=== PATIENT | female | born 1930 | race Caucasian/White ===

== ENCOUNTER 2018-06-24 11:11 | Inpatient (IN) | payer MEDICARE, OTHER, MEDICAID ==
[2018-06-24] MEDS: ACETAMINOPHEN 650 MG SUPP PR (12:00)
[2018-06-24 12:16] LABS: ADD MAN DIFF? NO
[2018-06-24 12:19] LABS: WHITE BLOOD COUNT 14.3 10^3/ul (4.8-10.8)
[2018-06-24 12:19] LABS: ABNORMAL IP MESSAGE 1; BASOPHILS % 0.3 % (0.0-2.0); EOSINOPHILS % 0.1 % (0.0-7.0); HEMATOCRIT 34.1 % (37.0-47.0); HEMOGLOBIN 10.1 g/dl (12.0-16.0); LYMPHOCYTES # 0.6 10^3/ul (0.8-2.9); LYMPHOCYTES % 4.1 % (15.0-51.0); MEAN CORPUSCULAR HEMOGLOBIN 29.9 pg (29.0-33.0); MEAN CORPUSCULAR HGB CONC 29.6 g/dl (32.0-37.0); MEAN CORPUSCULAR VOLUME 100.9 fl (82.0-101.0); MEAN PLATELET VOLUME 8.9 fl (7.4-10.4); MONOCYTE # 0.2 10^3/ul (0.3-0.9); MONOCYTES % 1.7 % (0.0-11.0); NEUTROPHIL # 13.4 10^3/ul (1.6-7.5); PLATELET COUNT 349 10^3/UL (140-415); RED BLOOD COUNT 3.38 10^6/ul (4.20-5.40); RED CELL DISTRIBUTION WIDTH 14.4 % (11.5-14.5)
[2018-06-24] MEDS: CEFEPIME 2GM/50 ML (PMX) 50 ML IVPB (12:22)
[2018-06-24 12:29] LABS: NEUTROPHILS % 93.4 % (39.0-77.0); POSITIVE DIFF @See below
[2018-06-24 12:43] LABS: INR 1.04; PROTIME 13.7 Sec (11.9-14.9); PT RATIO 1.1
[2018-06-24 12:44] LABS: PARTIAL THROMBOPLASTIN TIME 26.3 Sec (23.0-35.0)
[2018-06-24] MEDS: VANCOMYCIN 1 GM (PMX) 250 ML IVPB (12:55)
[2018-06-24 12:59] LABS: ALANINE AMINOTRANSFERASE 25 IU/L (13-69); ALBUMIN 3.1 g/dl (3.3-4.9); ALBUMIN/GLOBULIN RATIO 1.03; ALKALINE PHOSPHATASE 75 IU/L (42-121); ASPARTATE AMINO TRANSFERASE 19 IU/L (15-46); BILIRUBIN,INDIRECT 0.1 mg/dl (0-1.1); BILIRUBIN,TOTAL 0.1 mg/dl (0.2-1.3); BLOOD UREA NITROGEN 43 mg/dl (7-20); CALCIUM 9.7 mg/dl (8.4-10.2); CHLORIDE 103 mmol/L (97-110); CREATININE 0.52 mg/dl (0.44-1.00); GLUCOSE 273 mg/dl (70-220); POTASSIUM 4.1 mmol/L (3.5-5.1); SODIUM 146 mmol/L (135-144); TOTAL PROTEIN 6.1 g/dl (6.1-8.1)
[2018-06-24 13:04] LABS: ANION GAP 5 (5-13)
[2018-06-24 13:08] LABS: CARBON DIOXIDE 38 mmol/L (21-31)
[2018-06-24 13:09] LABS: TROPONIN-I 0.022 ng/ml (0.000-0.120)
[2018-06-24] MEDS ORDERED: ACETAMINOPHEN 325 MG TAB PO (14:00)
[2018-06-24] MEDS ORDERED: ONDANSETRON 4 MG INJ IV (14:00)
[2018-06-24] MEDS ORDERED: MECLIZINE 25 MG TAB PO (14:00)
[2018-06-24] MEDS ORDERED: MAGNESIUM HYDROXIDE 30ML CUP PO (14:00)
[2018-06-24 14:24] LABS: ANISOCYTOSIS 1+ (0-0); BAND NEUTROPHILS #M 8.8 10^3/ul (0.0-0.6); BAND NEUTROPHILS % (M) 62 % (0-4); LYMPHOCYTES #M 0.4 10^3/ul (0.8-2.9); LYMPHOCYTES % (M) 3 % (15-51); METAMYELOCYTES #M 0.2 10^3/ul (0.0-0.0); METAMYELOCYTES %M 2 % (0-0); MONOCYTE #M 0.1 10^3/ul (0.3-0.9); MONOCYTES % (M) 1 % (0-11); PLATELET ESTIMATE NORMAL; SEG NEUT #M 5.8 10^3/ul (1.6-7.5); SEGMENTED NEUTROPHILS (M) % 32 % (39-77); SMUDGE%M 8 % (0-0)
[2018-06-24] MEDS ORDERED: morphine 2 MG INJ IV (14:28)
[2018-06-24] MEDS: SOD CHLORIDE 0.9% 1,000 ML IV (14:30)
[2018-06-24] MEDS ORDERED: NACL 0.9% 3 ML SYG IV (14:30)
[2018-06-24 14:40] LABS: HEMOGLOBIN A1C 7.7 % (0-5.9)
[2018-06-24] MEDS: IOHEXOL 300MG/ML 150 ML BTL (14:40)
[2018-06-24] MEDS: IODIXANOL LOCM 100 ML BTL (14:50)
[2018-06-24] MEDS: SOD CHLORIDE 0.9% 100 ML (14:50)
[2018-06-24] MEDS: SODIUM CHLORIDE 0.9% 1L BAG IV* (15:00)
[2018-06-24] MEDS ORDERED: GLUCAGON 1 MG INJ IM (16:30)
[2018-06-24] MEDS ORDERED: GLUCOSE GEL 15 GRAM TUBE PO ×2 (16:30)
[2018-06-24] MEDS ORDERED: GLUCOSE GEL 15 GRAM TUBE BUCCAL (16:30)
[2018-06-24] MEDS ORDERED: DEXTROSE 50% 50 ML SYRINGE IV ×2 (16:30)
[2018-06-24] MEDS: DILTIAZEM 25 MG INJ IV (16:39)
[2018-06-24] MEDS: ACETAMINOPHEN 325 MG TAB PO (17:38)
[2018-06-24] MEDS: INSULIN ASPART [NOVOLOG] 3 ML PEN SC ×2 (18:00→22:07)
[2018-06-24] MEDS: AMIODARONE 150MG/D5W BOLUS 100 ML IV (18:05)
[2018-06-24] MEDS: AMIODARONE 900 MG in DEXTROSE 5% 482 ML IV (18:27)
[2018-06-24] MEDS: DIGOXIN 500 MCG INJ IV (18:56)
[2018-06-24] MEDS: LEVALBUTEROL (NEB) 0.63 MG/3 ML AMP HHN (20:58)
[2018-06-24] MEDS ORDERED: DILTIAZEM (CD) 120 MG CAP PO (21:00)
[2018-06-24] MEDS: CEFEPIME 1GM/50 ML (PMX) 50 ML IVPB (21:25)
[2018-06-24] MEDS: traMADol 50 MG TAB PO (21:30)
[2018-06-24] MEDS: METHYLPREDNISOLONE 40 MG INJ IV (21:30)
[2018-06-24] MEDS: QUETIAPINE 25 MG TAB PO (21:34)
[2018-06-24] MEDS: INSULIN ASP PROT/ASPART (70/30) PEN SC (22:07)
[2018-06-24] MEDS: SOD CHLORIDE 0.45% 1,000 ML IV (22:30)
[2018-06-24] MEDS: ALBUTEROL/IPRATROPIUM (NEB) 3 ML AMP NEB (23:18)
[2018-06-25] MEDS: DILTIAZEM 60 MG TAB GTB
[2018-06-25] MEDS: LORAZEPAM 4 MG/ML VIAL IV (00:23)
[2018-06-25] MEDS ORDERED: INSULIN ASPART [NOVOLOG] 3 ML PEN SC (01:00)
[2018-06-25] MEDS: INSULIN ASPART [NOVOLOG] 3 ML PEN SC ×6 (01:30→20:40)
[2018-06-25] MEDS ORDERED: ACCU-CHEK XX (02:00)
[2018-06-25] MEDS: LEVALBUTEROL (NEB) 0.63 MG/3 ML AMP HHN ×4 (02:00→19:53)
[2018-06-25] MEDS: ACETYLCYSTEINE 20% 4 ML VIAL NEB ×4 (02:00→19:49)
[2018-06-25] MEDS ORDERED: LEVOTHYROXINE 125 MCG TAB (05:18)
[2018-06-25] MEDS: LEVOTHYROXINE 100 MCG VIAL IV (06:00)
[2018-06-25] MEDS ORDERED: PANTOPRAZOLE (EC) 40 MG TAB PO (06:00)
[2018-06-25] MEDS ORDERED: LANSOPRAZOLE 30 MG CAP PO (06:00)
[2018-06-25] MEDS: PANTOPRAZOLE 40 MG INJ IV (06:28)
[2018-06-25] MEDS ORDERED: LEVOTHYROXINE 125 MCG TAB PO (07:00)
[2018-06-25] MEDS: DILTIAZEM-D5W 125MG/125ML DRIP 125 ML IV (07:10)
[2018-06-25] MEDS: MULTIVITAMINS 30 ML CUP PO (07:47)
[2018-06-25] MEDS: ASPIRIN 325 MG TAB PO (07:47)
[2018-06-25] MEDS: SERTRALINE 50 MG TAB PO (07:48)
[2018-06-25] MEDS: CHOLECALCIFEROL 1,000 UNIT TAB PO (07:48)
[2018-06-25] MEDS: INSULIN ASP PROT/ASPART (70/30) PEN SC ×2 (08:16→21:00)
[2018-06-25] MEDS: METHYLPREDNISOLONE 40 MG INJ IV (08:20)
[2018-06-25] MEDS: ENOXAPARIN 30 MG/0.3 ML SYG SC (08:21)
[2018-06-25] MEDS ORDERED: ASPIRIN (EC) 325 MG TAB PO (09:00)
[2018-06-25] MEDS ORDERED: MULTIVITAMINS THERAPEUTIC TAB PO (09:00)
[2018-06-25] MEDS ORDERED: ACETAMINOPHEN 650 MG SUPP PR (11:30)
[2018-06-25] MEDS: DEXTROSE 5%-0.45% NACL 1,000 ML IV (11:51)
[2018-06-25] MEDS: ACETAMINOPHEN 1000MG/100ML IV 100 ML IVPB ×4 (12:31→23:44)
[2018-06-25 14:52] LABS: ADD MAN DIFF? NO
[2018-06-25 14:56] LABS: WHITE BLOOD COUNT 13.8 10^3/ul (4.8-10.8)
[2018-06-25 14:56] LABS: BASOPHILS % 0.1 % (0.0-2.0); HEMATOCRIT 30.9 % (37.0-47.0); HEMOGLOBIN 9.2 g/dl (12.0-16.0); LYMPHOCYTES # 0.7 10^3/ul (0.8-2.9); LYMPHOCYTES % 4.9 % (15.0-51.0); MEAN CORPUSCULAR HEMOGLOBIN 30.2 pg (29.0-33.0); MEAN CORPUSCULAR HGB CONC 29.8 g/dl (32.0-37.0); MEAN CORPUSCULAR VOLUME 101.3 fl (82.0-101.0); MEAN PLATELET VOLUME 9.4 fl (7.4-10.4); MONOCYTE # 0.2 10^3/ul (0.3-0.9); MONOCYTES % 1.1 % (0.0-11.0); NEUTROPHIL # 12.9 10^3/ul (1.6-7.5); PLATELET COUNT 336 10^3/UL (140-415); RED BLOOD COUNT 3.05 10^6/ul (4.20-5.40); RED CELL DISTRIBUTION WIDTH 14.6 % (11.5-14.5)
[2018-06-25 15:01] LABS: NEUTROPHILS % 93.4 % (39.0-77.0); POSITIVE DIFF @See below
[2018-06-25 15:16] LABS: ALANINE AMINOTRANSFERASE 22 IU/L (13-69); ALBUMIN 2.7 g/dl (3.3-4.9); ALBUMIN/GLOBULIN RATIO 0.84; ALKALINE PHOSPHATASE 64 IU/L (42-121); ANION GAP 3 (5-13); ASPARTATE AMINO TRANSFERASE 17 IU/L (15-46); BILIRUBIN,INDIRECT 0.2 mg/dl (0-1.1); BILIRUBIN,TOTAL 0.2 mg/dl (0.2-1.3); BLOOD UREA NITROGEN 40 mg/dl (7-20); CALCIUM 9.1 mg/dl (8.4-10.2); CARBON DIOXIDE 40 mmol/L (21-31); CHLORIDE 102 mmol/L (97-110); CREATININE 0.54 mg/dl (0.44-1.00); GLUCOSE 177 mg/dl (70-220); MAGNESIUM 1.5 mg/dl (1.7-2.5); POTASSIUM 3.7 mmol/L (3.5-5.1); SODIUM 145 mmol/L (135-144); TOTAL PROTEIN 5.9 g/dl (6.1-8.1)
[2018-06-25 15:47] LABS: THYROID STIMULATING HORMONE 0.892 MIU/L (0.465-4.680)
[2018-06-25] MEDS: LORAZEPAM 2 MG INJ IV (17:56)
[2018-06-25] MEDS: CEFEPIME 1GM/50 ML (PMX) 50 ML IVPB (20:16)
[2018-06-25] MEDS: MAGNESIUM SULFATE 2 GM/50 ML 50 ML IVPB (20:16)
[2018-06-25] MEDS: AMIODARONE 900 MG in DEXTROSE 5% 482 ML IV (21:55)
[2018-06-25] MEDS: HALOPERIDOL 5 MG INJ IM (22:14)
[2018-06-26] MEDS ORDERED: LORAZEPAM 2 MG INJ (01:38)
[2018-06-26] MEDS: LORAZEPAM 2 MG INJ IV ×3 (01:42→23:04)
[2018-06-26] MEDS: LEVALBUTEROL (NEB) 0.63 MG/3 ML AMP HHN ×3 (01:48→13:06)
[2018-06-26] MEDS: ACETYLCYSTEINE 20% 4 ML VIAL NEB ×4 (01:49→19:30)
[2018-06-26] MEDS: INSULIN ASPART [NOVOLOG] 3 ML PEN SC ×5 (02:10→16:50)
[2018-06-26] MEDS: LEVOTHYROXINE 100 MCG VIAL IV (05:59)
[2018-06-26] MEDS: PANTOPRAZOLE 40 MG INJ IV (05:59)
[2018-06-26] MEDS: ACETAMINOPHEN 1000MG/100ML IV 100 ML IVPB ×2 (06:01→16:42)
[2018-06-26] MEDS: SERTRALINE 50 MG TAB PO (09:00)
[2018-06-26] MEDS: CHOLECALCIFEROL 1,000 UNIT TAB PO (09:00)
[2018-06-26] MEDS: MULTIVITAMINS 30 ML CUP PO (09:00)
[2018-06-26] MEDS: ASPIRIN 325 MG TAB PO (09:00)
[2018-06-26] MEDS: METHYLPREDNISOLONE 40 MG INJ IV (09:59)
[2018-06-26] MEDS: DEXTROSE 5%-0.45% NACL 1,000 ML IV (09:59)
[2018-06-26] MEDS: ENOXAPARIN 30 MG/0.3 ML SYG SC (10:17)
[2018-06-26] MEDS: BALSAM PERU/CASTOR OIL 60 GM TUBE TOP ×2 (10:26→22:27)
[2018-06-26] MEDS: INSULIN ASP PROT/ASPART (70/30) PEN SC (10:29)
[2018-06-26] MEDS: FUROSEMIDE 40 MG INJ IV (10:36)
[2018-06-26] MEDS: ALBUTEROL/IPRATROPIUM (NEB) 3 ML AMP NEB ×3 (11:00→19:30)
[2018-06-26] MEDS ORDERED: LORAZEPAM 2 MG INJ IV (11:30)
[2018-06-26] MEDS: HALOPERIDOL 5 MG INJ IM ×4 (12:32→21:00)
[2018-06-26] MEDS: ARTIFICIAL TEARS 15 ML OPH BOTH EYES ×3 (12:32→22:21)
[2018-06-26] MEDS: QUETIAPINE 25 MG TAB PO (21:00)
[2018-06-26] MEDS: CEFEPIME 1GM/50 ML (PMX) 50 ML IVPB (22:23)
[2018-06-26] MEDS: KETOROLAC 15 MG INJ IV (22:26)
[2018-06-27] MEDS: INSULIN ASPART [NOVOLOG] 3 ML PEN SC ×7 (00:08→21:00)
[2018-06-27] MEDS: HALOPERIDOL 5 MG INJ IM ×6 (00:09→21:00)
[2018-06-27] MEDS: ALBUTEROL/IPRATROPIUM (NEB) 3 ML AMP NEB ×4 (01:36→19:39)
[2018-06-27] MEDS: ACETYLCYSTEINE 20% 4 ML VIAL NEB ×4 (01:37→19:39)
[2018-06-27] MEDS: DEXTROSE 5%-0.45% NACL 1,000 ML IV (03:23)
[2018-06-27] MEDS: ALBUTEROL 0.083% (NEB) 2.5 MG/3 ML AMP HHN ×3 (04:05→23:39)
[2018-06-27] MEDS: PANTOPRAZOLE 40 MG INJ IV (05:52)
[2018-06-27] MEDS: LEVOTHYROXINE 100 MCG VIAL IV (05:52)
[2018-06-27] MEDS: KETOROLAC 15 MG INJ IV ×2 (05:52→23:44)
[2018-06-27] MEDS: AMIODARONE 900 MG in DEXTROSE 5% 482 ML IV (06:16)
[2018-06-27] MEDS: LORAZEPAM 2 MG INJ IV ×3 (07:56→23:00)
[2018-06-27] MEDS: METHYLPREDNISOLONE 40 MG INJ IV (08:54)
[2018-06-27] MEDS: ARTIFICIAL TEARS 15 ML OPH BOTH EYES ×4 (08:54→21:47)
[2018-06-27] MEDS: ASPIRIN 325 MG TAB PO (08:55)
[2018-06-27] MEDS: CHOLECALCIFEROL 1,000 UNIT TAB PO (08:55)
[2018-06-27] MEDS: SERTRALINE 50 MG TAB PO (08:55)
[2018-06-27] MEDS: MULTIVITAMINS 30 ML CUP PO (08:55)
[2018-06-27] MEDS: BALSAM PERU/CASTOR OIL 60 GM TUBE TOP ×2 (09:00→21:50)
[2018-06-27] MEDS: INSULIN ASP PROT/ASPART (70/30) PEN SC (09:11)
[2018-06-27] MEDS: ENOXAPARIN 30 MG/0.3 ML SYG SC (09:11)
[2018-06-27] MEDS: SOD CHLORIDE 0.45% 1,000 ML IV (10:48)
[2018-06-27] MEDS: ACETAMINOPHEN 650MG/20.3ML CUP PO (11:09)
[2018-06-27] MEDS: CEFEPIME 1GM/50 ML (PMX) 50 ML IVPB (21:00)
[2018-06-28] MEDS: HALOPERIDOL 5 MG INJ IM ×5 (01:00→17:00)
[2018-06-28] MEDS: ACETYLCYSTEINE 20% 4 ML VIAL NEB ×4 (02:00→20:34)
[2018-06-28] MEDS: ALBUTEROL/IPRATROPIUM (NEB) 3 ML AMP NEB ×4 (02:06→20:34)
[2018-06-28] MEDS: LORAZEPAM 2 MG INJ IV ×2 (02:26→10:13)
[2018-06-28] MEDS: ALBUTEROL 0.083% (NEB) 2.5 MG/3 ML AMP HHN (04:50)
[2018-06-28 05:29] LABS: ADD MAN DIFF? NO
[2018-06-28 05:34] LABS: BASOPHILS % 0.1 % (0.0-2.0); EOSINOPHILS # 0.4 10^3/ul (0.0-0.5); EOSINOPHILS % 3.5 % (0.0-7.0); HEMATOCRIT 29.8 % (37.0-47.0); HEMOGLOBIN 9.2 g/dl (12.0-16.0); LYMPHOCYTES # 1.1 10^3/ul (0.8-2.9); LYMPHOCYTES % 9.7 % (15.0-51.0); MEAN CORPUSCULAR HEMOGLOBIN 29.5 pg (29.0-33.0); MEAN CORPUSCULAR HGB CONC 30.9 g/dl (32.0-37.0); MEAN CORPUSCULAR VOLUME 95.5 fl (82.0-101.0); MEAN PLATELET VOLUME 9.4 fl (7.4-10.4); MONOCYTE # 0.5 10^3/ul (0.3-0.9); MONOCYTES % 4.6 % (0.0-11.0); NEUTROPHIL # 9.2 10^3/ul (1.6-7.5); NEUTROPHILS % 81.2 % (39.0-77.0); PLATELET COUNT 324 10^3/UL (140-415); RED BLOOD COUNT 3.12 10^6/ul (4.20-5.40); RED CELL DISTRIBUTION WIDTH 14.6 % (11.5-14.5)
[2018-06-28 05:34] LABS: WHITE BLOOD COUNT 11.3 10^3/ul (4.8-10.8)
[2018-06-28] MEDS: ONDANSETRON 4 MG INJ IV (05:38)
[2018-06-28] MEDS: PANTOPRAZOLE 40 MG INJ IV (05:39)
[2018-06-28] MEDS: KETOROLAC 15 MG INJ IV ×2 (05:39→23:50)
[2018-06-28] MEDS: LEVOTHYROXINE 100 MCG VIAL IV (05:39)
[2018-06-28 06:06] LABS: ALBUMIN 2.6 g/dl (3.3-4.9); ANION GAP 4 (5-13); BLOOD UREA NITROGEN 27 mg/dl (7-20); CALCIUM 8.7 mg/dl (8.4-10.2); CARBON DIOXIDE 39 mmol/L (21-31); CHLORIDE 98 mmol/L (97-110); CREATININE 0.46 mg/dl (0.44-1.00); GLUCOSE 117 mg/dl (70-220); MAGNESIUM 1.6 mg/dl (1.7-2.5); PHOSPHORUS 2.3 mg/dl (2.5-4.9); SODIUM 141 mmol/L (135-144)
[2018-06-28 06:13] LABS: POTASSIUM 2.7 mmol/L (3.5-5.1)
[2018-06-28] MEDS: SOD CHLORIDE 0.45% 1,000 ML IV ×2 (06:30→16:13)
[2018-06-28] MEDS ORDERED: POTASSIUM CHLORIDE 100 ML IVPB (07:04)
[2018-06-28] MEDS: INSULIN ASPART [NOVOLOG] 3 ML PEN SC ×4 (08:00→23:51)
[2018-06-28] MEDS: ASPIRIN 325 MG TAB PO (09:00)
[2018-06-28] MEDS: CHOLECALCIFEROL 1,000 UNIT TAB PO (09:00)
[2018-06-28] MEDS: MULTIVITAMINS 30 ML CUP PO (09:00)
[2018-06-28] MEDS: SERTRALINE 50 MG TAB PO (09:00)
[2018-06-28] MEDS: ARTIFICIAL TEARS 15 ML OPH BOTH EYES ×4 (09:19→21:21)
[2018-06-28] MEDS: METHYLPREDNISOLONE 40 MG INJ IV (09:20)
[2018-06-28] MEDS: BALSAM PERU/CASTOR OIL 60 GM TUBE TOP ×2 (09:21→21:22)
[2018-06-28] MEDS: ENOXAPARIN 30 MG/0.3 ML SYG SC (09:31)
[2018-06-28] MEDS: INSULIN ASP PROT/ASPART (70/30) PEN SC (09:32)
[2018-06-28] MEDS: POTASSIUM CHLORIDE 100 ML IVPB ×3 (10:13→13:46)
[2018-06-28] MEDS: AMIODARONE 900 MG in DEXTROSE 5% 482 ML IV (13:46)
[2018-06-28] MEDS ORDERED: DEXTROSE 5%-0.45% NACL 1,000 ML IV (15:30)
[2018-06-28] MEDS ORDERED: traZODone 50 MG TAB PO (16:00)
[2018-06-28] MEDS: MAGNESIUM SULFATE 2 GM/50 ML 50 ML IVPB (17:04)
[2018-06-28] MEDS ORDERED: HALOPERIDOL 5 MG INJ IM (19:00)
[2018-06-28] MEDS: DEXTROSE 5%-0.45% NACL 1,000 ML IV (21:16)
[2018-06-28] MEDS: CEFEPIME 1GM/50 ML (PMX) 50 ML IVPB (21:18)
[2018-06-28] MEDS: INSULIN GLARGINE [LANTus] (100 UNITS/ML) SYG SC (21:32)
[2018-06-29] MEDS: ALBUTEROL/IPRATROPIUM (NEB) 3 ML AMP NEB ×4 (01:50→20:11)
[2018-06-29] MEDS: ACETYLCYSTEINE 20% 4 ML VIAL NEB ×4 (01:51→20:11)
[2018-06-29] MEDS: PANTOPRAZOLE 40 MG INJ IV (05:00)
[2018-06-29] MEDS: LEVOTHYROXINE 100 MCG VIAL IV (05:01)
[2018-06-29] MEDS: INSULIN ASPART [NOVOLOG] 3 ML PEN SC ×3 (05:10→17:29)
[2018-06-29] MEDS: CHOLECALCIFEROL 1,000 UNIT TAB PO (09:00)
[2018-06-29] MEDS: MULTIVITAMINS 30 ML CUP PO (09:00)
[2018-06-29] MEDS: SERTRALINE 50 MG TAB PO (09:00)
[2018-06-29] MEDS: ASPIRIN 325 MG TAB PO (09:00)
[2018-06-29] MEDS: METHYLPREDNISOLONE 40 MG INJ IV ×3 (09:31→22:35)
[2018-06-29] MEDS: ARTIFICIAL TEARS 15 ML OPH BOTH EYES ×4 (09:31→20:57)
[2018-06-29] MEDS: BALSAM PERU/CASTOR OIL 60 GM TUBE TOP ×2 (09:33→20:57)
[2018-06-29 10:04] LABS: ADD MAN DIFF? NO
[2018-06-29 10:11] LABS: BASOPHILS % 0.2 % (0.0-2.0); EOSINOPHILS # 0.3 10^3/ul (0.0-0.5); EOSINOPHILS % 2.8 % (0.0-7.0); HEMATOCRIT 29.9 % (37.0-47.0); HEMOGLOBIN 8.7 g/dl (12.0-16.0); LYMPHOCYTES # 0.7 10^3/ul (0.8-2.9); LYMPHOCYTES % 5.4 % (15.0-51.0); MEAN CORPUSCULAR HEMOGLOBIN 29.9 pg (29.0-33.0); MEAN CORPUSCULAR HGB CONC 29.1 g/dl (32.0-37.0); MEAN CORPUSCULAR VOLUME 102.7 fl (82.0-101.0); MEAN PLATELET VOLUME 9.2 fl (7.4-10.4); MONOCYTE # 0.7 10^3/ul (0.3-0.9); MONOCYTES % 5.8 % (0.0-11.0); NEUTROPHIL # 10.3 10^3/ul (1.6-7.5); NEUTROPHILS % 84.2 % (39.0-77.0); PLATELET COUNT 359 10^3/UL (140-415); RED BLOOD COUNT 2.91 10^6/ul (4.20-5.40); RED CELL DISTRIBUTION WIDTH 14.8 % (11.5-14.5)
[2018-06-29 10:11] LABS: WHITE BLOOD COUNT 12.2 10^3/ul (4.8-10.8)
[2018-06-29 10:42] LABS: BLOOD UREA NITROGEN 26 mg/dl (7-20); CALCIUM 8.7 mg/dl (8.4-10.2); CHLORIDE 99 mmol/L (97-110); CREATININE 0.53 mg/dl (0.44-1.00); GLUCOSE 135 mg/dl (70-220); MAGNESIUM 2.3 mg/dl (1.7-2.5); PHOSPHORUS 3.6 mg/dl (2.5-4.9); POTASSIUM 4.4 mmol/L (3.5-5.1); SODIUM 143 mmol/L (135-144)
[2018-06-29] MEDS: ALBUTEROL 0.083% (NEB) 2.5 MG/3 ML AMP HHN (11:12)
[2018-06-29 11:33] LABS: ANION GAP 7 (5-13)
[2018-06-29 11:34] LABS: CARBON DIOXIDE 37 mmol/L (21-31)
[2018-06-29 13:36] LABS: B-TYPE NATRIURETIC PEPTIDE 1570 PG/ML (0-450)
[2018-06-29] MEDS: KETOROLAC 15 MG INJ IV (13:56)
[2018-06-29] MEDS: SOD CHLORIDE 0.9% 1,000 ML IV (14:59)
[2018-06-29] MEDS: LORAZEPAM 2 MG INJ IV ×2 (16:38→21:47)
[2018-06-29] MEDS: CEFEPIME 1GM/50 ML (PMX) 50 ML IVPB (20:57)
[2018-06-29] MEDS: ACETAMINOPHEN 1000MG/100ML IV 100 ML IVPB (20:57)
[2018-06-30] MEDS: ACETAMINOPHEN 1000MG/100ML IV 100 ML IVPB ×2 (01:02→06:35)
[2018-06-30] MEDS: ALBUTEROL/IPRATROPIUM (NEB) 3 ML AMP NEB ×4 (01:46→13:43)
[2018-06-30] MEDS: ACETYLCYSTEINE 20% 4 ML VIAL NEB ×4 (01:46→13:42)
[2018-06-30] MEDS: METHYLPREDNISOLONE 40 MG INJ IV ×2 (05:22→20:48)
[2018-06-30] MEDS: LANSOPRAZOLE 30 MG CAP PO (05:22)
[2018-06-30] MEDS: LEVOTHYROXINE 100 MCG VIAL IV (05:22)
[2018-06-30] MEDS: INSULIN ASPART [NOVOLOG] 3 ML PEN SC ×3 (06:37→12:00)
[2018-06-30] MEDS: LORAZEPAM 2 MG INJ IV ×3 (06:43→20:14)
[2018-06-30] MEDS: morphine SULFATE/PF (2 MG/2 ML) SYG IV ×3 (08:00→20:50)
[2018-06-30] MEDS: ASPIRIN 325 MG TAB PO (09:00)
[2018-06-30] MEDS: BALSAM PERU/CASTOR OIL 60 GM TUBE TOP (09:00)
[2018-06-30] MEDS: MULTIVITAMINS 30 ML CUP PO (09:00)
[2018-06-30] MEDS: CHOLECALCIFEROL 1,000 UNIT TAB PO (09:00)
[2018-06-30] MEDS: SERTRALINE 50 MG TAB PO (09:00)
[2018-06-30] MEDS: DIPHENHYDRAMINE 50 MG INJ IV ×2 (11:49→22:32)
[2018-06-30] MEDS: SOD CHLORIDE 0.9% 1,000 ML IV (12:06)
[2018-06-30] MEDS ORDERED: DIMETHICONE STICK TOP (12:30)
[2018-06-30] MEDS ORDERED: ATROPINE 1% 5 ML OPH SL (12:30)
[2018-06-30] MEDS ORDERED: ONDANSETRON 4 MG INJ IV (12:30)
[2018-06-30] MEDS ORDERED: BISACODYL 10 MG SUPP PR (12:30)
[2018-06-30] MEDS: ALBUTEROL/IPRATROPIUM (NEB) 3 ML AMP HHN (20:03)
[2018-06-30] MEDS ORDERED: METHYLPREDNISOLONE 40 MG INJ IV (21:00)
[2018-07-01] MEDS: ALBUTEROL/IPRATROPIUM (NEB) 3 ML AMP HHN ×6 (04:22→22:50)
[2018-07-01] MEDS: DIPHENHYDRAMINE 50 MG INJ IV ×3 (04:34→16:08)
[2018-07-01] MEDS: morphine SULFATE/PF (2 MG/2 ML) SYG IV ×5 (04:35→20:34)
[2018-07-01] MEDS: METHYLPREDNISOLONE 40 MG INJ IV ×2 (08:01→20:43)
[2018-07-01] MEDS: LORAZEPAM 2 MG INJ IV ×5 (08:02→23:57)
[2018-07-01] MEDS ORDERED: DIPHENHYDRAMINE 50 MG INJ (10:05)
[2018-07-01] MEDS: SOD CHLORIDE 0.9% 1,000 ML IV (11:24)
[2018-07-01] MEDS: ARTIFICIAL TEARS 15 ML OPH BOTH EYES ×2 (16:09→20:34)
[2018-07-01] MEDS: ACETAMINOPHEN 650 MG SUPP PR (16:19)
[2018-07-01] MEDS ORDERED: ACETAMINOPHEN 1000MG/100ML IV 100 ML IVPB (16:30)
[2018-07-01] MEDS: AMIODARONE 900 MG in DEXTROSE 5% 482 ML IV (17:34)
[2018-07-02] MEDS: morphine SULFATE/PF (2 MG/2 ML) SYG IV ×5 (00:30→12:19)
[2018-07-02] MEDS: DIPHENHYDRAMINE 50 MG INJ IV ×2 (01:40→10:17)
[2018-07-02] MEDS: LORAZEPAM 2 MG INJ IV ×5 (04:30→20:47)
[2018-07-02] MEDS: ALBUTEROL/IPRATROPIUM (NEB) 3 ML AMP HHN ×5 (07:47→23:33)
[2018-07-02] MEDS: ARTIFICIAL TEARS 15 ML OPH BOTH EYES ×4 (09:01→20:46)
[2018-07-02] MEDS: METHYLPREDNISOLONE 40 MG INJ IV ×2 (09:07→20:47)
[2018-07-02] MEDS: ACETAMINOPHEN 650 MG SUPP PR ×3 (09:07→14:19)
[2018-07-02] MEDS: SOD CHLORIDE 0.9% 1,000 ML IV (12:06)
[2018-07-02] MEDS: HYDROmorphONE 0.5 MG/0.5 ML SYG IV ×2 (16:43→21:19)
[2018-07-02] MEDS: AMIODARONE 900 MG in DEXTROSE 5% 482 ML IV (19:01)
[2018-07-03] MEDS: HYDROmorphONE 0.5 MG/0.5 ML SYG IV ×6 (00:38→20:41)
[2018-07-03] MEDS: LORAZEPAM 2 MG INJ IV ×6 (00:58→20:30)
[2018-07-03] MEDS: ACETAMINOPHEN 650 MG SUPP PR ×2 (03:06→20:41)
[2018-07-03] MEDS: ALBUTEROL/IPRATROPIUM (NEB) 3 ML AMP HHN ×3 (07:26→15:11)
[2018-07-03] MEDS: METHYLPREDNISOLONE 40 MG INJ IV ×2 (08:34→20:41)
[2018-07-03] MEDS: ARTIFICIAL TEARS 15 ML OPH BOTH EYES ×4 (08:35→20:41)
[2018-07-03] MEDS: AMIODARONE 900 MG in DEXTROSE 5% 482 ML IV (20:41)
[2018-07-04] MEDS: LORAZEPAM 2 MG INJ IV ×6 (00:30→21:04)
[2018-07-04] MEDS: HYDROmorphONE 0.5 MG/0.5 ML SYG IV ×6 (03:07→21:04)
[2018-07-04] MEDS: ARTIFICIAL TEARS 15 ML OPH BOTH EYES ×4 (08:03→21:00)
[2018-07-04] MEDS: METHYLPREDNISOLONE 40 MG INJ IV ×2 (08:27→21:00)
[2018-07-04] MEDS: AMIODARONE 900 MG in DEXTROSE 5% 482 ML IV (18:00)
[2018-07-05] MEDS: HYDROmorphONE 0.5 MG/0.5 ML SYG IV ×6 (02:06→10:24)
[2018-07-05] MEDS: LORAZEPAM 2 MG INJ IV ×5 (02:06→10:24)
[2018-07-05] MEDS: ARTIFICIAL TEARS 15 ML OPH BOTH EYES (10:22)
[2018-07-05] MEDS: METHYLPREDNISOLONE 40 MG INJ IV (10:24)
== END 2018-07-05 12:05 | disposition expired | DRG 189 ==
LOC: E/R 11:11 → 6WM 13:54
PROVIDERS: Internal Medicine
DX: J96.01 Acute respiratory failure with hypoxia (principal); J18.9 Pneumonia, unspecified organism; N17.9 Acute kidney failure, unspecified; M05.10 Rheumatoid lung disease with rheumatoid arthritis of unspecified site; D64.9 Anemia, unspecified; E03.9 Hypothyroidism, unspecified; E11.9 Type 2 diabetes mellitus without complications; I10 Essential (primary) hypertension; I48.91 Unspecified atrial fibrillation; J84.10 Pulmonary fibrosis, unspecified; L89.152 Pressure ulcer of sacral region, stage 2; R91.8 Other nonspecific abnormal finding of lung field; Z66 Do not resuscitate; Z51.5 Encounter for palliative care; Z79.4 Long term (current) use of insulin; Z79.82 Long term (current) use of aspirin
CPT/HCPCS: 36415; 71045; 71260; 80048; 80053; 80069; 82962; 83036; 83605; 83735; 83880; 84100; 84443; 84484; 85025; 85610; 85730; 87040; 92526; 92610; 93005; 93306; 94640; 94664; 96374; 96375; 97165; 99291-25